=== PATIENT | female | born 1965 | race Caucasian/White ===

== ENCOUNTER 2017-09-13 16:10 | Inpatient (IN) | payer OTHER ==
[2017-09-13] MEDS: CLINDAMYCIN 900 MG/D5W (PMX) 50 ML IVPB (16:30)
[2017-09-13] MEDS ORDERED: CEFAZOLIN 1 GM INJ (17:15)
[2017-09-13] MEDS ORDERED: PROPOFOL 20 ML (17:15)
[2017-09-13] MEDS ORDERED: ROCURONIUM 50 MG INJ (17:15)
[2017-09-13] MEDS ORDERED: GLYCOPYRROLATE 0.4 MG INJ (17:15)
[2017-09-13] MEDS ORDERED: NEOSTIGMINE 3 MG/3 ML SYRINGE (17:15)
[2017-09-13] MEDS ORDERED: MIDAZOLAM 1 MG/ML 2 ML INJ (17:17)
[2017-09-13] MEDS ORDERED: ONDANSETRON 4 MG INJ (17:17)
[2017-09-13] MEDS ORDERED: FENTAnyl 50 MCG/ML VIAL (17:17)
[2017-09-13] MEDS ORDERED: DEXAMETHASONE 4 MG/ML 1 ML INJ (17:18)
[2017-09-13] MEDS ORDERED: CLINDAMYCIN 900 MG/D5W (PMX) 50 ML IVPB (17:29)
[2017-09-13] MEDS ORDERED: MINERAL OIL LIGHT 10 ML VIAL (17:43)
[2017-09-13] MEDS ORDERED: DIPHENHYDRAMINE 50 MG INJ IV ×2 (18:00)
[2017-09-13] MEDS ORDERED: TRIMETHOBENZAMIDE 100 MG/ML VIAL IM (18:00)
[2017-09-13] MEDS ORDERED: ACETAMINOPHEN 325 MG TAB PO (18:00)
[2017-09-13] MEDS ORDERED: LABETALOL HCL 20MG INJ IV (18:00)
[2017-09-13] MEDS ORDERED: ONDANSETRON 4 MG INJ IV (18:00)
[2017-09-13] MEDS ORDERED: HYDROmorphONE (0.2 MG/ML) 10ML SYG IV ×3 (18:00)
[2017-09-13] MEDS ORDERED: hydrALAzine 20 MG INJ IV (18:00)
[2017-09-13] MEDS ORDERED: ALBUTEROL 0.083% (NEB) 2.5 MG/3 ML AMP HHN (18:00)
[2017-09-13] MEDS ORDERED: EPHEDrine SULFATE 50 MG/5 ML SYG IV (18:00)
[2017-09-13] MEDS ORDERED: METOCLOPRAMIDE 10 MG INJ IV (18:00)
[2017-09-13] MEDS ORDERED: MEPERIDINE 25 MG INJ IV (18:00)
[2017-09-13] MEDS ORDERED: FENTAnyl 50 MCG/ML VIAL IV ×3 (18:00)
[2017-09-13] MEDS ORDERED: OXYCODONE/ACETAMINOPHEN (5/325) TAB PO ×2 (18:00)
[2017-09-13] MEDS ORDERED: IPRATROPIUM (NEB) 0.5 MG/2.5 ML AMP HHN (18:00)
[2017-09-13] MEDS ORDERED: MIDAZOLAM 1 MG/ML 2 ML INJ IV (18:00)
[2017-09-13] MEDS: LIDOCAINE 1% (MPF) 30 ML INJ (18:06)
[2017-09-13] MEDS ORDERED: ZOLPIDEM 5 MG TAB PO (18:30)
[2017-09-13] MEDS: FAMOTIDINE 20 MG TAB PO ×2 (21:00→22:50)
[2017-09-13] MEDS: HYDROCODONE/APAP (5/325) TAB PO (22:50)
[2017-09-14] MEDS: CLINDAMYCIN 600 MG/D5W (PMX) 50 ML IVPB ×5 (00:09→23:48)
[2017-09-14] MEDS: HYDROCODONE/APAP (10/325) TAB PO ×2 (06:26→12:22)
[2017-09-14] MEDS: ENOXAPARIN 30 MG/0.3 ML SYG SC (06:31)
[2017-09-14] MEDS: FAMOTIDINE 20 MG TAB PO (09:01)
[2017-09-14] MEDS: HYDROCODONE/APAP (5/325) TAB PO ×2 (09:01→20:26)
[2017-09-14] MEDS: ASCORBIC ACID 500 MG TAB PO (09:01)
[2017-09-14] MEDS: ZINC SULFATE 220 MG CAP PO (09:01)
[2017-09-14] MEDS ORDERED: LORAZEPAM 1 MG TAB PO (10:00)
[2017-09-14 10:50] LABS: ADD MAN DIFF? NO
[2017-09-14 10:56] LABS: BASOPHILS % 0.9 % (0.0-2.0); EOSINOPHILS % 0.7 % (0.0-7.0); HEMATOCRIT 29.4 % (37.0-47.0); HEMOGLOBIN 9.5 g/dl (12.0-16.0); LYMPHOCYTES # 1.3 10^3/ul (0.8-2.9); LYMPHOCYTES % 30.2 % (15.0-51.0); MEAN CORPUSCULAR HGB CONC 32.3 g/dl (32.0-37.0); MEAN CORPUSCULAR VOLUME 92.7 fl (82.0-101.0); MEAN PLATELET VOLUME 9.6 fl (7.4-10.4); MONOCYTE # 0.3 10^3/ul (0.3-0.9); MONOCYTES % 5.7 % (0.0-11.0); NEUTROPHIL # 2.7 10^3/ul (1.6-7.5); NEUTROPHILS % 62.3 % (39.0-77.0); PLATELET COUNT 398 10^3/UL (140-415); RED BLOOD COUNT 3.17 10^6/ul (4.20-5.40)
[2017-09-14 10:56] LABS: WHITE BLOOD COUNT 4.4 10^3/ul (4.8-10.8)
[2017-09-14] MEDS: KETOROLAC 30 MG INJ IV ×2 (10:58→22:05)
[2017-09-14 11:15] LABS: IRON 33 ug/dl (35-150)
[2017-09-14 11:16] LABS: ALANINE AMINOTRANSFERASE 33 IU/L (13-69); ALBUMIN 3.6 g/dl (3.3-4.9); ALBUMIN/GLOBULIN RATIO 1.09; ALKALINE PHOSPHATASE 141 IU/L (42-121); ANION GAP 13 (8-16); ASPARTATE AMINO TRANSFERASE 21 IU/L (15-46); BLOOD UREA NITROGEN 9 mg/dl (7-20); CALCIUM 9.4 mg/dl (8.4-10.2); CARBON DIOXIDE 27 mmol/L (21-31); CHLORIDE 104 mmol/L (97-110); CREATININE 0.59 mg/dl (0.44-1.00); GLUCOSE 143 mg/dl (70-220); POTASSIUM 3.4 mmol/L (3.5-5.1); SODIUM 141 mmol/L (135-144); TOTAL PROTEIN 6.9 g/dl (6.1-8.1)
[2017-09-14 11:24] LABS: % IRON SATURATION 12 % SAT (22-52); TOTAL IRON BINDING CAPACITY 282 ug/dl (241-421)
[2017-09-14] MEDS: POTASSIUM CHLORIDE (SR) 20 MEQ TAB PO (12:27)
[2017-09-14 13:10] LABS: HEPATITIS C VIRAL ANTIBODY NEGATIVE (NEGATIVE)
[2017-09-14 13:21] LABS: HIV 1&2 ANTIBODY NEGATIVE (NEGATIVE)
[2017-09-14] MEDS: HYDROmorphONE 0.5 MG/0.5 ML SYG IV (15:24)
[2017-09-15] MEDS: HYDROCODONE/APAP (10/325) TAB PO ×2 (04:34→18:11)
[2017-09-15] MEDS: CLINDAMYCIN 600 MG/D5W (PMX) 50 ML IVPB ×3 (06:17→18:11)
[2017-09-15] MEDS: PANTOPRAZOLE (EC) 40 MG TAB PO (06:18)
[2017-09-15] MEDS: ENOXAPARIN 30 MG/0.3 ML SYG SC (06:26)
[2017-09-15] MEDS: KETOROLAC 30 MG INJ IV ×2 (06:45→12:54)
[2017-09-15] MEDS: ASCORBIC ACID 500 MG TAB PO (09:42)
[2017-09-15] MEDS: ZINC SULFATE 220 MG CAP PO (09:42)
[2017-09-15] MEDS: HYDROCODONE/APAP (5/325) TAB PO (10:25)
[2017-09-15] MEDS: HYDROmorphONE 0.5 MG/0.5 ML SYG IV ×2 (13:55→21:57)
[2017-09-15] MEDS: FERROUS SULFATE (EC) 325 MG TAB PO (21:57)
[2017-09-16] MEDS: HYDROCODONE/APAP (10/325) TAB PO ×4 (00:05→21:13)
[2017-09-16] MEDS: CLINDAMYCIN 600 MG/D5W (PMX) 50 ML IVPB ×5 (00:05→23:28)
[2017-09-16] MEDS: HYDROmorphONE 0.5 MG/0.5 ML SYG IV ×3 (05:16→17:46)
[2017-09-16 06:13] LABS: ADD MAN DIFF? NO
[2017-09-16 06:18] LABS: BASOPHIL # 0.1 10^3/ul (0.0-0.1); EOSINOPHILS # 0.3 10^3/ul (0.0-0.5); EOSINOPHILS % 5.1 % (0.0-7.0); HEMATOCRIT 31.4 % (37.0-47.0); HEMOGLOBIN 10.3 g/dl (12.0-16.0); LYMPHOCYTES % 39.7 % (15.0-51.0); MEAN CORPUSCULAR HEMOGLOBIN 29.9 pg (29.0-33.0); MEAN CORPUSCULAR HGB CONC 32.8 g/dl (32.0-37.0); MEAN CORPUSCULAR VOLUME 91.3 fl (82.0-101.0); MEAN PLATELET VOLUME 9.5 fl (7.4-10.4); MONOCYTE # 0.5 10^3/ul (0.3-0.9); MONOCYTES % 8.8 % (0.0-11.0); NEUTROPHIL # 2.3 10^3/ul (1.6-7.5); PLATELET COUNT 442 10^3/UL (140-415); RED BLOOD COUNT 3.44 10^6/ul (4.20-5.40); RED CELL DISTRIBUTION WIDTH 15.9 % (11.5-14.5)
[2017-09-16 06:18] LABS: WHITE BLOOD COUNT 5.1 10^3/ul (4.8-10.8)
[2017-09-16] MEDS: PANTOPRAZOLE (EC) 40 MG TAB PO (06:42)
[2017-09-16] MEDS: ENOXAPARIN 30 MG/0.3 ML SYG SC (06:43)
[2017-09-16 06:44] LABS: ALANINE AMINOTRANSFERASE 33 IU/L (13-69); ALBUMIN 3.8 g/dl (3.3-4.9); ALBUMIN/GLOBULIN RATIO 1.05; ALKALINE PHOSPHATASE 131 IU/L (42-121); ANION GAP 15 (8-16); ASPARTATE AMINO TRANSFERASE 25 IU/L (15-46); BLOOD UREA NITROGEN 13 mg/dl (7-20); CALCIUM 9.5 mg/dl (8.4-10.2); CARBON DIOXIDE 25 mmol/L (21-31); CHLORIDE 106 mmol/L (97-110); CREATININE 0.58 mg/dl (0.44-1.00); GLUCOSE 113 mg/dl (70-220); POTASSIUM 3.7 mmol/L (3.5-5.1); SODIUM 142 mmol/L (135-144); TOTAL PROTEIN 7.4 g/dl (6.1-8.1)
[2017-09-16 07:00] LABS: PHOSPHORUS 3.8 mg/dl (2.5-4.9)
[2017-09-16 07:00] LABS: MAGNESIUM 1.9 mg/dl (1.7-2.5)
[2017-09-16] MEDS: ZINC SULFATE 220 MG CAP PO (08:11)
[2017-09-16] MEDS: FERROUS SULFATE (EC) 325 MG TAB PO ×2 (08:11→21:10)
[2017-09-16] MEDS: ASCORBIC ACID 500 MG TAB PO (08:11)
[2017-09-16] MEDS: LACTOBACILLUS RHAMNOSUS CAP PO (21:10)
[2017-09-17] MEDS: HYDROmorphONE 0.5 MG/0.5 ML SYG IV ×4 (00:40→18:45)
[2017-09-17] MEDS: PANTOPRAZOLE (EC) 40 MG TAB PO (05:06)
[2017-09-17] MEDS: HYDROCODONE/APAP (5/325) TAB PO ×2 (05:06→15:56)
[2017-09-17] MEDS: CLINDAMYCIN 600 MG/D5W (PMX) 50 ML IVPB (05:06)
[2017-09-17 06:13] LABS: ADD MAN DIFF? NO
[2017-09-17 06:17] LABS: BASOPHIL # 0.1 10^3/ul (0.0-0.1); BASOPHILS % 1.2 % (0.0-2.0); EOSINOPHILS # 0.3 10^3/ul (0.0-0.5); EOSINOPHILS % 5.2 % (0.0-7.0); HEMATOCRIT 32.2 % (37.0-47.0); HEMOGLOBIN 10.4 g/dl (12.0-16.0); LYMPHOCYTES # 2.4 10^3/ul (0.8-2.9); LYMPHOCYTES % 36.7 % (15.0-51.0); MEAN CORPUSCULAR HEMOGLOBIN 29.5 pg (29.0-33.0); MEAN CORPUSCULAR HGB CONC 32.3 g/dl (32.0-37.0); MEAN CORPUSCULAR VOLUME 91.5 fl (82.0-101.0); MEAN PLATELET VOLUME 9.6 fl (7.4-10.4); MONOCYTE # 0.6 10^3/ul (0.3-0.9); MONOCYTES % 9.2 % (0.0-11.0); NEUTROPHIL # 3.1 10^3/ul (1.6-7.5); NEUTROPHILS % 47.2 % (39.0-77.0); PLATELET COUNT 476 10^3/UL (140-415); RED BLOOD COUNT 3.52 10^6/ul (4.20-5.40)
[2017-09-17 06:17] LABS: WHITE BLOOD COUNT 6.6 10^3/ul (4.8-10.8)
[2017-09-17 06:44] LABS: PARTIAL THROMBOPLASTIN TIME 26.7 Sec (25.0-35.0)
[2017-09-17 06:47] LABS: ALANINE AMINOTRANSFERASE 34 IU/L (13-69); ALBUMIN 3.9 g/dl (3.3-4.9); ALBUMIN/GLOBULIN RATIO 1.21; ALKALINE PHOSPHATASE 113 IU/L (42-121); ANION GAP 18 (8-16); ASPARTATE AMINO TRANSFERASE 26 IU/L (15-46); BLOOD UREA NITROGEN 20 mg/dl (7-20); CALCIUM 9.5 mg/dl (8.4-10.2); CARBON DIOXIDE 22 mmol/L (21-31); CHLORIDE 106 mmol/L (97-110); CREATININE 0.59 mg/dl (0.44-1.00); GLUCOSE 136 mg/dl (70-220); MAGNESIUM 1.9 mg/dl (1.7-2.5); PHOSPHORUS 3.7 mg/dl (2.5-4.9); POTASSIUM 3.7 mmol/L (3.5-5.1); SODIUM 142 mmol/L (135-144); TOTAL PROTEIN 7.1 g/dl (6.1-8.1)
[2017-09-17] MEDS: ENOXAPARIN 30 MG/0.3 ML SYG SC (06:47)
[2017-09-17 07:55] LABS: HEMOGLOBIN A1C 5.3 % (0-5.9)
[2017-09-17] MEDS: ZINC SULFATE 220 MG CAP PO (09:12)
[2017-09-17] MEDS: FERROUS SULFATE (EC) 325 MG TAB PO ×2 (09:12→21:02)
[2017-09-17] MEDS: FAMOTIDINE 20 MG TAB PO (09:12)
[2017-09-17] MEDS: LACTOBACILLUS RHAMNOSUS CAP PO ×2 (09:12→21:03)
[2017-09-17] MEDS: ASCORBIC ACID 500 MG TAB PO (09:12)
[2017-09-17] MEDS ORDERED: ONDANSETRON 4 MG INJ IV (10:00)
[2017-09-17] MEDS: HYDROCODONE/APAP (10/325) TAB PO ×2 (10:52→22:17)
[2017-09-17] MEDS ORDERED: CLINDAMYCIN 150 MG CAP PO (12:00)
[2017-09-17] MEDS: CLINDAMYCIN 300 MG CAP PO ×3 (12:49→23:56)
[2017-09-18] MEDS: HYDROmorphONE 0.5 MG/0.5 ML SYG IV ×4 (01:37→20:07)
[2017-09-18] MEDS: HYDROCODONE/APAP (10/325) TAB PO ×3 (05:31→18:26)
[2017-09-18] MEDS: PANTOPRAZOLE (EC) 40 MG TAB PO (05:31)
[2017-09-18] MEDS: CLINDAMYCIN 300 MG CAP PO ×3 (05:31→18:26)
[2017-09-18] MEDS: ENOXAPARIN 30 MG/0.3 ML SYG SC (06:47)
[2017-09-18] MEDS: ZINC SULFATE 220 MG CAP PO (08:55)
[2017-09-18] MEDS: FAMOTIDINE 20 MG TAB PO (08:55)
[2017-09-18] MEDS: ASCORBIC ACID 500 MG TAB PO (08:55)
[2017-09-18] MEDS: LACTOBACILLUS RHAMNOSUS CAP PO ×2 (08:55→21:25)
[2017-09-18] MEDS: FERROUS SULFATE (EC) 325 MG TAB PO ×2 (08:56→20:07)
[2017-09-19] MEDS: HYDROCODONE/APAP (10/325) TAB PO ×3 (00:12→12:16)
[2017-09-19] MEDS: CLINDAMYCIN 300 MG CAP PO ×3 (00:12→12:16)
[2017-09-19] MEDS: HYDROmorphONE 0.5 MG/0.5 ML SYG IV ×3 (02:08→14:54)
[2017-09-19] MEDS: ENOXAPARIN 40 MG/0.4 ML SYG SC (06:33)
[2017-09-19] MEDS: PANTOPRAZOLE (EC) 40 MG TAB PO (06:34)
[2017-09-19] MEDS: FERROUS SULFATE (EC) 325 MG TAB PO (08:32)
[2017-09-19] MEDS: LACTOBACILLUS RHAMNOSUS CAP PO (08:33)
[2017-09-19] MEDS: ZINC SULFATE 220 MG CAP PO (08:33)
[2017-09-19] MEDS: FAMOTIDINE 20 MG TAB PO (08:33)
[2017-09-19] MEDS: ASCORBIC ACID 500 MG TAB PO (08:33)
== END 2017-09-19 16:45 | disposition home or self-care (01) | DRG 574 ==
LOC: SDS 16:10 → REC 18:13 → MS2 21:10
PROC: 0HRMX74 Replacement of Right Foot Skin with Autologous Tissue Substitute, Partial Thickness, External Approach (ICD-10-PCS; principal; 2017-09-13 16:00)
PROC: 0HBLXZZ Excision of Left Lower Leg Skin, External Approach (ICD-10-PCS; 2017-09-13 16:00)
DX: L97.519 Non-pressure chronic ulcer of other part of right foot with unspecified severity (principal); F11.20 Opioid dependence, uncomplicated; I10 Essential (primary) hypertension; D50.9 Iron deficiency anemia, unspecified; E78.00 Pure hypercholesterolemia, unspecified
CPT/HCPCS: 80053; 82607; 83036; 83540; 83735; 84100; 84443; 84703; 85025; 85730; 86703; 86803; 87070; 87075; 87081; 87102; 87116; 97161; 99217

== ENCOUNTER 2018-01-29 19:08 | Inpatient (IN) | payer OTHER ==
[2018-01-29] MEDS ORDERED: ACETAMINOPHEN 325 MG TAB PO (20:30)
[2018-01-29] MEDS ORDERED: HYDROCODONE/APAP (5/325) TAB PO (20:30)
[2018-01-29] MEDS ORDERED: VANCOMYCIN IV PER PHARMACY XX (20:30)
[2018-01-29] MEDS: PIPER-TAZO 3.375 GM IV (PMX) 100 ML IVPB (20:45)
[2018-01-29] MEDS: HEPARIN 5,000 UNIT/0.5 ML VIAL SC (20:47)
[2018-01-29] MEDS: HYDROCODONE/APAP (5/325) TAB PO (21:06)
[2018-01-29] MEDS: VANCOMYCIN 1 GM 250 ML IVPB (22:33)
[2018-01-30] MEDS: PIPER-TAZO 3.375 GM IV (PMX) 100 ML IVPB ×4 (00:58→17:34)
[2018-01-30 01:21] LABS: ADD MAN DIFF? NO
[2018-01-30 01:23] LABS: WHITE BLOOD COUNT 6.2 10^3/ul (4.8-10.8)
[2018-01-30 01:23] LABS: BASOPHIL # 0.1 10^3/ul (0.0-0.1); BASOPHILS % 1.1 % (0.0-2.0); EOSINOPHILS # 0.4 10^3/ul (0.0-0.5); EOSINOPHILS % 5.9 % (0.0-7.0); HEMATOCRIT 31.6 % (37.0-47.0); HEMOGLOBIN 10.1 g/dl (12.0-16.0); LYMPHOCYTES # 3.2 10^3/ul (0.8-2.9); LYMPHOCYTES % 51.2 % (15.0-51.0); MEAN CORPUSCULAR HEMOGLOBIN 29.4 pg (29.0-33.0); MEAN CORPUSCULAR VOLUME 91.9 fl (82.0-101.0); MEAN PLATELET VOLUME 10.4 fl (7.4-10.4); MONOCYTE # 0.5 10^3/ul (0.3-0.9); MONOCYTES % 8.2 % (0.0-11.0); NEUTROPHIL # 2.1 10^3/ul (1.6-7.5); NEUTROPHILS % 33.4 % (39.0-77.0); PLATELET COUNT 310 10^3/UL (140-415); RED BLOOD COUNT 3.44 10^6/ul (4.20-5.40); RED CELL DISTRIBUTION WIDTH 15.4 % (11.5-14.5)
[2018-01-30 01:41] LABS: ALANINE AMINOTRANSFERASE 29 IU/L (13-69); ALBUMIN 3.7 g/dl (3.3-4.9); ALBUMIN/GLOBULIN RATIO 1.23; ALKALINE PHOSPHATASE 109 IU/L (42-121); ANION GAP 12 (8-16); ASPARTATE AMINO TRANSFERASE 22 IU/L (15-46); BILIRUBIN,INDIRECT 0.4 mg/dl (0-1.1); BILIRUBIN,TOTAL 0.4 mg/dl (0.2-1.3); BLOOD UREA NITROGEN 24 mg/dl (7-20); CARBON DIOXIDE 28 mmol/L (21-31); CHLORIDE 109 mmol/L (97-110); CREATININE 0.73 mg/dl (0.44-1.00); GLUCOSE 105 mg/dl (70-220); MAGNESIUM 2.1 mg/dl (1.7-2.5); PHOSPHORUS 3.8 mg/dl (2.5-4.9); POTASSIUM 4.2 mmol/L (3.5-5.1); SODIUM 145 mmol/L (135-144); TOTAL PROTEIN 6.7 g/dl (6.1-8.1)
[2018-01-30] MEDS: HEPARIN 5,000 UNIT/0.5 ML VIAL SC ×2 (09:18→21:18)
[2018-01-30] MEDS: HYDROCODONE/APAP (5/325) TAB PO ×3 (10:12→21:25)
[2018-01-30] MEDS: VANCOMYCIN 1 GM 250 ML IVPB ×2 (10:12→21:59)
[2018-01-30 17:59] LABS: AMPHETAMINE/METHAMPHETAMINE Negative (NEGATIVE)
[2018-01-30 18:02] LABS: BARBITURATES Negative (NEGATIVE); BENZODIAZEPINES Negative (NEGATIVE); CANNABINOIDS Negative (NEGATIVE); COCAINE Negative (NEGATIVE); OPIATES Positive (NEGATIVE)
[2018-01-30 21:02] LABS: VANCOMYCIN,TROUGH 10.8 ug/ml (10.0-20.0)
[2018-01-30] MEDS: FERROUS SULFATE (EC) 325 MG TAB PO (21:17)
[2018-01-30] MEDS: ATORVASTATIN 20 MG TAB PO (21:17)
[2018-01-31] MEDS: PIPER-TAZO 3.375 GM IV (PMX) 100 ML IVPB ×4 (00:21→18:00)
[2018-01-31 05:48] LABS: ADD MAN DIFF? NO
[2018-01-31 05:51] LABS: BASOPHIL # 0.1 10^3/ul (0.0-0.1); BASOPHILS % 1.9 % (0.0-2.0); EOSINOPHILS # 0.3 10^3/ul (0.0-0.5); EOSINOPHILS % 6.9 % (0.0-7.0); HEMATOCRIT 31.6 % (37.0-47.0); HEMOGLOBIN 10.1 g/dl (12.0-16.0); LYMPHOCYTES # 2.6 10^3/ul (0.8-2.9); LYMPHOCYTES % 54.8 % (15.0-51.0); MEAN CORPUSCULAR HEMOGLOBIN 29.6 pg (29.0-33.0); MEAN CORPUSCULAR VOLUME 92.7 fl (82.0-101.0); MEAN PLATELET VOLUME 10.4 fl (7.4-10.4); MONOCYTE # 0.4 10^3/ul (0.3-0.9); MONOCYTES % 8.6 % (0.0-11.0); NEUTROPHIL # 1.3 10^3/ul (1.6-7.5); NEUTROPHILS % 27.6 % (39.0-77.0); PLATELET COUNT 312 10^3/UL (140-415); RED BLOOD COUNT 3.41 10^6/ul (4.20-5.40); RED CELL DISTRIBUTION WIDTH 15.5 % (11.5-14.5)
[2018-01-31 05:51] LABS: WHITE BLOOD COUNT 4.8 10^3/ul (4.8-10.8)
[2018-01-31 06:13] LABS: PHOSPHORUS 3.5 mg/dl (2.5-4.9)
[2018-01-31 06:13] LABS: CHOL/HDL RATIO 2.3 RATIO; CHOLESTEROL 104 mg/dl (100-200); HDL CHOLESTEROL 44 mg/dl (37-92); LDL CHOLESTEROL,CALCULATED 45 mg/dl; MAGNESIUM 2.1 mg/dl (1.7-2.5); TRIGLYCERIDES 76 mg/dl (0-149)
[2018-01-31 06:29] LABS: FREE T4 (FREE THYROXINE) 1.34 ng/dl (0.64-1.79)
[2018-01-31] MEDS: LEVOTHYROXINE 25 MCG TAB PO (07:00)
[2018-01-31] MEDS: HYDROCODONE/APAP (5/325) TAB PO ×2 (07:04→13:07)
[2018-01-31 07:39] LABS: THYROID STIMULATING HORMONE 0.402 MIU/L (0.465-4.680)
[2018-01-31 07:39] LABS: HEMOGLOBIN A1C 5.5 % (0-5.9)
[2018-01-31] MEDS ORDERED: AMLODIPINE 10 MG TAB PO (09:00)
[2018-01-31] MEDS: VANCOMYCIN 1 GM 250 ML IVPB (10:03)
[2018-01-31] MEDS: MELOXICAM 15 MG TAB PO (10:03)
[2018-01-31] MEDS: FERROUS SULFATE (EC) 325 MG TAB PO (10:03)
[2018-01-31] MEDS: HEPARIN 5,000 UNIT/0.5 ML VIAL SC (10:03)
[2018-01-31] MEDS: ZINC SULFATE 220 MG CAP PO (10:03)
[2018-01-31 11:27] LABS: ALANINE AMINOTRANSFERASE 42 IU/L (13-69); ALBUMIN 3.3 g/dl (3.3-4.9); ALBUMIN/GLOBULIN RATIO 1.22; ALKALINE PHOSPHATASE 101 IU/L (42-121); ANION GAP 14 (8-16); ASPARTATE AMINO TRANSFERASE 31 IU/L (15-46); BILIRUBIN,INDIRECT 0.2 mg/dl (0-1.1); BILIRUBIN,TOTAL 0.2 mg/dl (0.2-1.3); BLOOD UREA NITROGEN 20 mg/dl (7-20); CALCIUM 9.1 mg/dl (8.4-10.2); CARBON DIOXIDE 26 mmol/L (21-31); CHLORIDE 110 mmol/L (97-110); CREATININE 0.78 mg/dl (0.44-1.00); GLUCOSE 84 mg/dl (70-220); POTASSIUM 4.6 mmol/L (3.5-5.1); SODIUM 145 mmol/L (135-144)
== END 2018-01-31 18:36 | disposition home or self-care (01) | DRG 603 ==
LOC: PP2 19:08
DX: L03.115 Cellulitis of right lower limb (principal); F11.20 Opioid dependence, uncomplicated
CPT/HCPCS: 73700; 80053; 80061; 80202; 80307; 83036; 83735; 84100; 84439; 84443; 85025; 87081

== ENCOUNTER 2019-03-08 21:47 | Emergency (ER) | payer OTHER | END 2019-03-08 23:07 | disposition home or self-care (01) | LOC: FTE 21:47 | DX: J20.9 Acute bronchitis, unspecified (principal); F17.210 Nicotine dependence, cigarettes, uncomplicated | CPT/HCPCS: 99283; Z7502 ==